=== PATIENT | female | born 1955 | race Caucasian/White ===

== ENCOUNTER 2018-03-26 16:43 | Emergency (ER) | payer MEDICAID ==
[~2018-03-26] VITALS: Ht 160 cm; Wt 80.0 kg
[2018-03-26] MEDS ORDERED: LORazepam 2 MG/ML, 1ML ONE (17:27)
[2018-03-26] MEDS ORDERED: ONDANSETRON 2MG/ML, 2ML ONE (17:29)
[2018-03-26] MEDS ORDERED: ONDANSETRON ODT 4 MG PO ONE (17:30)
[2018-03-26] MEDS ORDERED: LORazepam 2 MG/ML, 1ML IVPush ONE (17:30)
[2018-03-26] MEDS ORDERED: SODIUM CHLORIDE FLUSH 10ML SYR IVF ONE (17:30)
[2018-03-26 17:33] LABS: BASOPHILS % (AUTO) 0 % (0-1); EOSINOPHILS # (AUTO) 0.05 x10^3/uL (0-0.4); EOSINOPHILS % (AUTO) 1 % (1-7); LYMPHOCYTES # (AUTO) 1.09 x10^3/uL (1-3.4); LYMPHOCYTES % (AUTO) 13 % (22-44); MD NO; MEAN CORPUSCULAR HEMOGLOBIN 33.9 pg (27.0-34.8); MEAN CORPUSCULAR HGB CONC 34.8 g/dL (32.4-35.8); MEAN CORPUSCULAR VOLUME 97.2 fL (80-100); MEAN PLATELET VOLUME 11.1 fL (7.4-10.4); MONOCYTES # (AUTO) 0.14 x10^3/uL (0.2-0.8); MONOCYTES % (AUTO) 2 % (2-9); NEUTROPHILS # (AUTO) 7.33 x10^3/uL (1.8-6.8); NEUTROPHILS % (AUTO) 85 % (42-75); PLATELET COUNT 206 x10^3/uL (130-400); RED BLOOD COUNT 5.05 x10^6/uL (3.82-5.3); RED CELL DISTRIBUTION WIDTH 14.2 % (9.6-15.2)
[2018-03-26 17:44] LABS: ALBUMIN 4.4 g/dL (3.4-5.0); ANION GAP 11 mmol/L (5-15); CALCIUM 9.5 mg/dL (8.5-10.1); CHLORIDE 106 mmol/L (98-107); CREATININE 0.77 mg/dL (0.55-1.02)
[2018-03-26 17:47] LABS: TROPONIN I < 0.015 ng/mL (0.000-0.045)
[2018-03-26] MEDS ORDERED: ONDANSETRON ODT 4 MG ONE (18:10)
[2018-03-26 18:49] LABS: MICROSCOPIC AUTO
[2018-03-26 18:51] LABS: CULTURE INDICATED? YES
[2018-03-26 20:01] VITALS: BP 157/95
== END 2018-03-26 20:06 | disposition home or self-care (01) ==
LOC: ED 18:43
DX: N30.01 Acute cystitis with hematuria (principal); F41.1 Generalized anxiety disorder; R42 Dizziness and giddiness; R06.4 Hyperventilation; F17.200 Nicotine dependence, unspecified, uncomplicated
CPT/HCPCS: 36415; 70450; 80048; 81001; 82040; 84484; 85025; 87086; 93005; 96374; 99285; J2060; Q0162

== ENCOUNTER 2018-04-12 20:40 | Emergency (ER) | payer MEDICAID ==
[~2018-04-12] VITALS: Ht 160 cm; Wt 81.6 kg
[2018-04-12 22:00] LABS: BASOPHILS # (AUTO) 0.07 x10^3/uL (0-0.1); BASOPHILS % (AUTO) 1 % (0-1); EOSINOPHILS # (AUTO) 0.19 x10^3/uL (0-0.4); EOSINOPHILS % (AUTO) 2 % (1-7); LYMPHOCYTES # (AUTO) 2.04 x10^3/uL (1-3.4); LYMPHOCYTES % (AUTO) 25 % (22-44); MD NO; MEAN CORPUSCULAR HEMOGLOBIN 33.7 pg (27.0-34.8); MEAN CORPUSCULAR HGB CONC 34.9 g/dL (32.4-35.8); MEAN CORPUSCULAR VOLUME 96.7 fL (80-100); MEAN PLATELET VOLUME 11.9 fL (7.4-10.4); MONOCYTES # (AUTO) 0.44 x10^3/uL (0.2-0.8); MONOCYTES % (AUTO) 5 % (2-9); NEUTROPHILS # (AUTO) 5.54 x10^3/uL (1.8-6.8); NEUTROPHILS % (AUTO) 67 % (42-75); PLATELET COUNT 212 x10^3/uL (130-400); RED BLOOD COUNT 4.82 x10^6/uL (3.82-5.3); RED CELL DISTRIBUTION WIDTH 13.9 % (9.6-15.2)
[2018-04-12 22:12] LABS: ALANINE AMINOTRANSFERASE 41 U/L (12-78); ALBUMIN 3.8 g/dL (3.4-5.0); ANION GAP 5 mmol/L (5-15); CALCIUM 8.9 mg/dL (8.5-10.1); CHLORIDE 109 mmol/L (98-107); CREATININE 0.86 mg/dL (0.55-1.02)
[2018-04-12 22:17] LABS: ALKALINE PHOSPHATASE 48 U/L (45-117); BILIRUBIN,TOTAL 0.2 mg/dL (0.2-1.0); TOTAL PROTEIN 7.2 g/dL (6.4-8.2); TROPONIN I < 0.015 ng/mL (0.000-0.045)
[2018-04-12 22:42] LABS: CULTURE INDICATED? YES; MICROSCOPIC INDICATED
[2018-04-12 23:54] VITALS: BP 124/75
== END 2018-04-13 00:08 | disposition home or self-care (01) ==
LOC: ED 23:02
DX: N30.00 Acute cystitis without hematuria (principal); F41.0 Panic disorder [episodic paroxysmal anxiety]; F17.200 Nicotine dependence, unspecified, uncomplicated
CPT/HCPCS: 36415; 80053; 81001; 83690; 84484; 85025; 87086; 93005; 99285

== ENCOUNTER 2018-07-17 20:14 | Emergency (ER) | payer MEDICAID ==
[~2018-07-17] VITALS: Ht 160 cm; Wt 75.0 kg
[2018-07-17] MEDS ORDERED: ASPIRIN 325 MG TABLET PO STA (20:46)
[2018-07-17] MEDS ORDERED: DIAZEPAM 5 MG TABLET PO ONE (21:00)
[2018-07-17] MEDS ORDERED: ASPIRIN 325 MG TABLET ONE (21:02)
[2018-07-17] MEDS ORDERED: DIAZEPAM 5 MG TABLET ONE (21:03)
[2018-07-17 21:04] LABS: BASOPHILS # (AUTO) 0.07 x10^3/uL (0-0.1); BASOPHILS % (AUTO) 1 % (0-1); EOSINOPHILS # (AUTO) 0.09 x10^3/uL (0-0.4); EOSINOPHILS % (AUTO) 1 % (1-7); LYMPHOCYTES # (AUTO) 1.72 x10^3/uL (1-3.4); LYMPHOCYTES % (AUTO) 20 % (22-44); MD NO; MEAN CORPUSCULAR HEMOGLOBIN 33.9 pg (27.0-34.8); MEAN CORPUSCULAR HGB CONC 35.2 g/dL (32.4-35.8); MEAN CORPUSCULAR VOLUME 96.2 fL (80-100); MEAN PLATELET VOLUME 10.7 fL (7.4-10.4); MONOCYTES # (AUTO) 0.36 x10^3/uL (0.2-0.8); MONOCYTES % (AUTO) 4 % (2-9); NEUTROPHILS # (AUTO) 6.42 x10^3/uL (1.8-6.8); NEUTROPHILS % (AUTO) 74 % (42-75); PLATELET COUNT 228 x10^3/uL (130-400); RED BLOOD COUNT 4.85 x10^6/uL (3.82-5.3); RED CELL DISTRIBUTION WIDTH 13.9 % (9.6-15.2)
[2018-07-17 21:14] LABS: ALANINE AMINOTRANSFERASE 35 U/L (12-78); ALBUMIN 4.3 g/dL (3.4-5.0); ANION GAP 13 mmol/L (5-15); CALCIUM 8.6 mg/dL (8.5-10.1); CHLORIDE 104 mmol/L (98-107); CREATININE 0.79 mg/dL (0.55-1.02)
[2018-07-17 21:19] LABS: ALKALINE PHOSPHATASE 56 U/L (45-117); BILIRUBIN,TOTAL 0.4 mg/dL (0.2-1.0); FREE T4 (FREE THYROXINE) 0.83 ng/dL (0.76-1.46); TROPONIN I < 0.015 ng/mL (0.000-0.045)
[2018-07-17 22:37] VITALS: BP 145/88
== END 2018-07-17 22:40 | disposition home or self-care (01) ==
LOC: ED 22:36
DX: F41.1 Generalized anxiety disorder (principal); R06.4 Hyperventilation; I10 Essential (primary) hypertension; R51 Headache
CPT/HCPCS: 36415; 80053; 84439; 84443; 84484; 85025; 93005; 99285

== ENCOUNTER 2019-02-18 18:51 | Emergency (ER) | payer SELFPAY ==
[~2019-02-18] VITALS: Ht 160 cm; Wt 77.9 kg
--- NOTE | 2019-02-18 19:58 | NUR ---
PRESSURE IN HEAD, DIFFICULTY URINATING (STATES SHE THINKS SHE PASSED A STONE), NASAL CONGESTION, RUNNY NOSE, HEADACHE, NAUSEA, VOMITTING, PRESSURE IN EARS, DIFFICULTY URINATING, COUGH, SOB, LEFT FLANK PAIN THAT RADIATES TO HER LEFT ABD. ALL SYMPTONS FOR 2 WEEKS, PT STATES
[2019-02-18] MEDS ORDERED: ONDANSETRON ODT 4 MG ONE (20:27)
[2019-02-18] MEDS ORDERED: ONDANSETRON ODT 4 MG PO ONE (20:30)
--- NOTE | 2019-02-18 20:33 | NUR ---
pt ambulaty to bedside commode. urine sample provided and tubed to lab. pt resting on gurney, reading a book. medicated for nausea, per emar.
[2019-02-18 20:47] LABS: MICROSCOPIC AUTO
[2019-02-18 20:47] LABS: BASOPHILS # (AUTO) 0.04 x10^3/uL (0-0.1); BASOPHILS % (AUTO) 0 % (0-1); EOSINOPHILS # (AUTO) 0.13 x10^3/uL (0-0.4); EOSINOPHILS % (AUTO) 1 % (1-7); LYMPHOCYTES # (AUTO) 2.84 x10^3/uL (1-3.4); LYMPHOCYTES % (AUTO) 21 % (22-44); MD NO; MEAN CORPUSCULAR HEMOGLOBIN 31.8 pg (27.0-34.8); MEAN CORPUSCULAR HGB CONC 32.9 g/dL (32.4-35.8); MEAN CORPUSCULAR VOLUME 96.7 fL (80-100); MEAN PLATELET VOLUME 11.1 fL (7.4-10.4); MONOCYTES # (AUTO) 0.83 x10^3/uL (0.2-0.8); MONOCYTES % (AUTO) 6 % (2-9); NEUTROPHILS # (AUTO) 9.96 x10^3/uL (1.8-6.8); NEUTROPHILS % (AUTO) 72 % (42-75); PLATELET COUNT 229 x10^3/uL (130-400); RED BLOOD COUNT 5.18 x10^6/uL (3.82-5.3); RED CELL DISTRIBUTION WIDTH 14.7 % (9.6-15.2)
[2019-02-18 20:48] LABS: CULTURE INDICATED? YES
[2019-02-18 20:56] LABS: ALANINE AMINOTRANSFERASE 23 U/L (12-78); ALBUMIN 4.4 g/dL (3.4-5.0); ANION GAP 6 mmol/L (5-15); CALCIUM 9.7 mg/dL (8.5-10.1); CHLORIDE 103 mmol/L (98-107); CREATININE 0.78 mg/dL (0.55-1.02)
[2019-02-18 20:58] LABS: ALKALINE PHOSPHATASE 69 U/L (45-117); TOTAL PROTEIN 8.5 g/dL (6.4-8.2)
--- NOTE | 2019-02-18 21:00 | NUR ---
ALL RESULTS BACK AT THIS TIME, CHART UP FOR RECHECK
[2019-02-18 21:35] VITALS: BP 133/99
--- NOTE | 2019-02-18 21:35 | NUR ---
PT RESTING ON DARRYL. READING BOOK. NO ACUTE DISTRESS NOTED.
== END 2019-02-18 21:53 | disposition home or self-care (01) ==
LOC: ED 20:15
DX: N30.01 Acute cystitis with hematuria (principal); J01.00 Acute maxillary sinusitis, unspecified; B86 Scabies; I10 Essential (primary) hypertension
CPT/HCPCS: 36415; 80053; 81001; 83690; 85025; 87086; 99283; Q0162

== ENCOUNTER 2019-07-03 12:52 | Emergency (ER) | payer SELFPAY ==
[~2019-07-03] VITALS: Ht 160 cm; Wt 77.1 kg
[2019-07-03 12:55] VITALS: BP 142/99
--- NOTE | 2019-07-03 13:07 | NUR ---
PT TO ED AFTER MISSING WORK 3 DAYS AGO FOR ANXIETY ATTACK AND NOW NEEDS WORK NOTE. WOULD ALSO LIKE RESOURCES FOR MEDICAID. CALL LIGHT WITHIN REACH.
--- NOTE | 2019-07-03 14:00 | NUR ---
TASK RN: DC EDUCATION PROVIDED, PT DEMONSTRATES UNDERSTANDING. PT AMBUALTED STEADILY TO DC WITH RN
== END 2019-07-03 14:29 | disposition home or self-care (01) ==
LOC: ED 13:50
DX: F41.0 Panic disorder [episodic paroxysmal anxiety] (principal); I10 Essential (primary) hypertension; F17.200 Nicotine dependence, unspecified, uncomplicated
CPT/HCPCS: 99281